=== PATIENT | female | born 1975 | race American Indian/Alaskan Native ===

== ENCOUNTER 2019-07-03 15:58 | Emergency (ER) | payer OTHER ==
[2019-07-03 16:05] VITALS: BP 134/59
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
[2019-07-03] MEDS ORDERED: IBUPROFEN PO ONE (16:19)
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
== END 2019-07-03 18:07 | disposition home or self-care (01) ==
LOC: ED 15:58
DX: S29.9XXA Unspecified injury of thorax, initial encounter (principal); F17.200 Nicotine dependence, unspecified, uncomplicated; Z91.013 Allergy to seafood; V47.5XXA Car driver injured in collision with fixed or stationary object in traffic accident, initial encounter; Y93.89 Activity, other specified; Y92.410 Unspecified street and highway as the place of occurrence of the external cause; Y99.8 Other external cause status
CPT/HCPCS: 71046